=== PATIENT | male | born 1980 | race Caucasian/White ===

== ENCOUNTER 2025-11-03 04:47 | Emergency (ER) | payer MEDICAID ==
[~2025-11-03] VITALS: Ht 162.6 cm; Wt 81.0 kg
[2025-11-03 05:04] VITALS: O2SAT 99
[2025-11-03] MEDS: DIPHENHYDRAMINE 25MG CAPSULE PO ONE (05:37)
[2025-11-03] MEDS ORDERED: LORA-859 MT (05:46)
[2025-11-03] MEDS ORDERED: DIPH25CA83 MT (05:46)
[2025-11-03 05:50] VITALS: BP 115/76; PULSE 63; RESP 16; TEMP 37.2; O2SAT 98
== END 2025-11-03 05:53 | disposition home or self-care (01) ==
LOC: ER 04:47
DX: L50.9 Urticaria, unspecified (principal)
CPT/HCPCS: 99282; Q0163